=== PATIENT | female | born 1945 | race Asian ===

== ENCOUNTER 2020-03-04 19:58 | Inpatient (IN) | payer MEDICARE, SELFPAY ==
[~2020-03-04] VITALS: Ht 165.1 cm; Wt 42.6 kg
[~2020-03-04 19:58] MED LIST: ASPI-1155 PO; ATOR10TA68 PO; DOCU-144 PO; GLU500 PO; SER25 PO
[2020-03-04 20:05] VITALS: BP_SYST 111
[2020-03-04 20:59] LABS: BASOPHILS # (AUTO) 0.1 K/uL (0.0-0.2); BASOPHILS % (AUTO) 0.6 % (0.0-2.0); EOSINOPHILS # (AUTO) 0.1 K/uL (0.0-0.4); EOSINOPHILS % (AUTO) 0.9 % (0.0-4.0); HEMATOCRIT 25.1 % (36-48); LYMPHOCYTES # (AUTO) 1.2 K/uL (1.0-5.5); MEAN CORPUSCULAR HEMOGLOBIN 30 pg (27-31); MEAN CORPUSCULAR HGB CONC 32 % (32-36); MEAN CORPUSCULAR VOLUME 93 fL (79.0-98.0); MONOCYTES # (AUTO) 0.7 K/uL (0.0-1.0); MONOCYTES % (AUTO) 4.9 % (1.7-9.3); NEUTROPHILS # (AUTO) 11.6 K/uL (1.8-7.7); NEUTROPHILS % (AUTO) 84.6 % (40.0-70.0); PLATELET COUNT (AUTO) 481 K/uL (130-430); RED CELL DISTRIBUTION WIDTH 15.2 % (9.0-15.0); WHITE BLOOD COUNT (AUTO) 13.8 K/uL (4.8-10.8)
[2020-03-04 21:22] LABS: INR 1.1 (0.8-1.2); PROTHROMBIN TIME 10.9 SECS (9.5-12.5)
[2020-03-04 21:32] LABS: ANION GAP 10 (5-15); CALCIUM 8.6 mg/dL (8.4-11.0); CHLORIDE 101 mmol/L (98-107); CREATININE 0.79 mg/dL (0.55-1.30); GLUCOSE 238 mg/dL (70-99); POTASSIUM 4.6 mmol/L (3.5-5.1); SODIUM SERUM 140 mmol/L (136-145); UREA NITROGEN, BLOOD 35 mg/dL (8-21)
[2020-03-04 21:38] LABS: ALANINE AMINOTRANSFERASE 50 U/L (12-78); ALBUMIN 2.7 g/dL (3.4-4.8); ASPARTATE AMINOTRANSFERASE 21 U/L (10-37); FREE T4 (FREE THYROXINE) 1.5 ng/dl (0.8-1.5); THYROID STIMULATING HORMONE 0.45 uIu/mL (0.36-3.74); TOTAL BILIRUBIN 0.2 mg/dL (0.0-1.0)
[2020-03-04 21:40] LABS: ALCOHOL, BLOOD < 3 mg/dL (<10)
[2020-03-04 22:15] LABS: BILIRUBIN,URINE NEGATIVE (NEGATIVE); BLOOD, URINE 2+ (NEGATIVE); COLOR,URINE YELLOW (YELLOW); GLUCOSE,URINE NEGATIVE (NEGATIVE); KETONES,URINE NEGATIVE (NEGATIVE); LEUKOCYTE ESTERASE ,URINE 1+ (NEGATIVE); NITRITE, URINE NEGATIVE (NEGATIVE); PROTEIN URINE 1+ (NEGATIVE); UROBILINOGEN,URINE 0.2 (0.2-1.0)
[2020-03-04 22:20] LABS: CLARITY/URINE SLIGHTLY HAZY (CLEAR)
[2020-03-04 22:27] LABS: BACTERIA,URINE MODERATE /HPF (None Seen)
[2020-03-04] MEDS ORDERED: VANCOMYCIN HCL 1,000 MG in NS 250 ML IV ONE (22:30)
[2020-03-04] MEDS ORDERED: CEFEPIME 2 GM in D5W 100 ML IV ONE (22:30)
[2020-03-04 22:35] LABS: BARBITURATE, URINE NEGATIVE (NEG <=200); BENZODIAZEPINE, URINE NEGATIVE (NEG <=150); CANNABINOID, URINE NEGATIVE (NEG <=50); COCAINE, URINE NEGATIVE (NEG <=150); METHAMPHETAMINES SCREEN,URINE NEGATIVE (NEG <=500); OPIATE, URINE NEGATIVE (NEG <=100); PHENCYCLIDINE SCREEN,URINE NEGATIVE (NEG <=25); UR TRICYCLIC ANTIDEPRESSANTS POSITIVE (NEG <=300); URINE AMPHETAMINE NEGATIVE (NEG <=500); URINE METHADONE NEGATIVE (NEG <=200); URINE OXYCODONE SCREEN NEGATIVE (NEG <=100); URINE PROPOXYPHENE SCREEN NEGATIVE (NEG <=300)
[2020-03-04] MEDS ORDERED: NS 500 ML IV ONE (22:45)
[2020-03-04] MEDS ORDERED: NACL 0.9% 1,000 ML IV ONE (22:45)
[2020-03-04] MEDS ORDERED: VANCOMYCIN HCL 1000 MG/VIAL IV ONE (23:08)
[2020-03-04] MEDS ORDERED: CEFEPIME 1 GM/VIAL (MAXIPIME) ONE (23:12)
[2020-03-04] MEDS ORDERED: INSULIN REGULAR, HUMAN 100 UNITS/ML, 10 ML VIAL (humuLIN R) SUBCUT PRN (23:15)
[2020-03-05 01:11] VITALS: BP_SYST 113
[2020-03-05] MEDS: cefTRIAXone 1 GM IVPB PREMIX 50 ML IV SCH (03:22)
[2020-03-05] MEDS ORDERED: cefTRIAXone 1 GM IVPB PREMIX 50 ML IV ONE (03:25)
[2020-03-05] MEDS: NACL 0.9% 1,000 ML IV SCH ×3 (03:28→21:36)
[2020-03-05 06:36] LABS: BASOPHILS # (AUTO) 0.1 K/uL (0.0-0.2); BASOPHILS % (AUTO) 0.8 % (0.0-2.0); EOSINOPHILS # (AUTO) 0.2 K/uL (0.0-0.4); EOSINOPHILS % (AUTO) 2.4 % (0.0-4.0); LYMPHOCYTES # (AUTO) 2.4 K/uL (1.0-5.5); LYMPHOCYTES % (AUTO) 23.3 % (20.5-51.5); MEAN CORPUSCULAR HEMOGLOBIN 30 pg (27-31); MEAN CORPUSCULAR HGB CONC 33 % (32-36); MEAN CORPUSCULAR VOLUME 91 fL (79.0-98.0); MONOCYTES # (AUTO) 0.5 K/uL (0.0-1.0); MONOCYTES % (AUTO) 5.1 % (1.7-9.3); NEUTROPHILS % (AUTO) 68.4 % (40.0-70.0); PLATELET COUNT (AUTO) 423 K/uL (130-430); RED BLOOD CELL COUNT(AUTO) 2.09 MIL/uL (4.2-6.2); WHITE BLOOD COUNT (AUTO) 10.2 K/uL (4.8-10.8)
[2020-03-05 06:56] LABS: HEMOGLOBIN 6.3 g/dL (12.0-16.0)
[2020-03-05 07:31] LABS: ALANINE AMINOTRANSFERASE 37 U/L (12-78); ALBUMIN 2.3 g/dL (3.4-4.8); ASPARTATE AMINOTRANSFERASE 18 U/L (10-37); CALCIUM 7.5 mg/dL (8.4-11.0); CHLORIDE 105 mmol/L (98-107); CREATININE 0.49 mg/dL (0.55-1.30); GLUCOSE 142 mg/dL (70-99); POTASSIUM 3.7 mmol/L (3.5-5.1); SODIUM SERUM 137 mmol/L (136-145); TOTAL BILIRUBIN 0.2 mg/dL (0.0-1.0); UREA NITROGEN, BLOOD 34 mg/dL (8-21)
[2020-03-05 07:46] LABS: ANION GAP < 3 (5-15)
[2020-03-05 08:00] VITALS: BP_SYST 114
[2020-03-05] MEDS: metFORMIN HCL 500 MG TABLET PO SCH ×2 (08:35→18:47)
[2020-03-05] MEDS: DOCUSATE SODIUM 100 MG CAPSULE PO SCH ×2 (08:38→21:36)
[2020-03-05] MEDS: ATORVASTATIN 10 MG TABLET PO SCH (08:38)
[2020-03-05] MEDS ORDERED: ASPIRIN 81 MG TAB.CHEW PO SCH (09:00)
[2020-03-05] MEDS ORDERED: PANTOPRAZOLE SODIUM 80 MG in NS 100 ML IV ONE (09:15)
[2020-03-05 10:46] LABS: TOTAL IRON BIND. CAPACITY 191 ug/dL (250-450)
[2020-03-05 12:31] VITALS: BP_SYST 119
[2020-03-05 15:53] LABS: BASOPHILS # (AUTO) 0.1 K/uL (0.0-0.2); BASOPHILS % (AUTO) 1.2 % (0.0-2.0); EOSINOPHILS # (AUTO) 0.2 K/uL (0.0-0.4); EOSINOPHILS % (AUTO) 4.1 % (0.0-4.0); LYMPHOCYTES # (AUTO) 1.9 K/uL (1.0-5.5); LYMPHOCYTES % (AUTO) 33.8 % (20.5-51.5); MEAN CORPUSCULAR HEMOGLOBIN 29 pg (27-31); MEAN CORPUSCULAR HGB CONC 32 % (32-36); MEAN CORPUSCULAR VOLUME 91 fL (79.0-98.0); MONOCYTES # (AUTO) 0.5 K/uL (0.0-1.0); MONOCYTES % (AUTO) 8.6 % (1.7-9.3); NEUTROPHILS % (AUTO) 52.3 % (40.0-70.0); PLATELET COUNT (AUTO) 423 K/uL (130-430); RED BLOOD CELL COUNT(AUTO) 2.15 MIL/uL (4.2-6.2); RED CELL DISTRIBUTION WIDTH 15.4 % (9.0-15.0); WHITE BLOOD COUNT (AUTO) 5.7 K/uL (4.8-10.8)
[2020-03-05 16:07] LABS: HEMATOCRIT 19.5 % (36-48); HEMOGLOBIN 6.2 g/dL (12.0-16.0)
[2020-03-05 16:33] VITALS: BP_SYST 116
[2020-03-05] MEDS: PANTOPRAZOLE SODIUM 40 MG in NS 50 ML IV SCH (18:00)
[2020-03-05] MEDS: QUEtiapine FUMARATE 25 MG TABLET PO SCH (21:36)
[2020-03-05 23:58] VITALS: BP_SYST 112
[2020-03-06] MEDS: cefTRIAXone 1 GM IVPB PREMIX 50 ML IV SCH ×2 (03:30→22:36)
[2020-03-06 03:58] LABS: BASOPHILS % (AUTO) 0.6 % (0.0-2.0); EOSINOPHILS # (AUTO) 0.2 K/uL (0.0-0.4); EOSINOPHILS % (AUTO) 2.9 % (0.0-4.0); HEMATOCRIT 30.8 % (36-48); HEMOGLOBIN 10.4 g/dL (12.0-16.0); LYMPHOCYTES # (AUTO) 1.5 K/uL (1.0-5.5); LYMPHOCYTES % (AUTO) 20.2 % (20.5-51.5); MEAN CORPUSCULAR HEMOGLOBIN 31 pg (27-31); MEAN CORPUSCULAR HGB CONC 34 % (32-36); MEAN CORPUSCULAR VOLUME 90 fL (79.0-98.0); MONOCYTES # (AUTO) 0.5 K/uL (0.0-1.0); MONOCYTES % (AUTO) 6.1 % (1.7-9.3); NEUTROPHILS # (AUTO) 5.2 K/uL (1.8-7.7); NEUTROPHILS % (AUTO) 70.2 % (40.0-70.0); PLATELET COUNT (AUTO) 367 K/uL (130-430); RED BLOOD CELL COUNT(AUTO) 3.42 MIL/uL (4.2-6.2); RED CELL DISTRIBUTION WIDTH 14.8 % (9.0-15.0); WHITE BLOOD COUNT (AUTO) 7.4 K/uL (4.8-10.8)
[2020-03-06 04:11] LABS: PROTHROMBIN TIME 10.1 SECS (9.5-12.5)
[2020-03-06 08:01] VITALS: BP_SYST 127
[2020-03-06] MEDS: ATORVASTATIN 10 MG TABLET PO SCH (08:23)
[2020-03-06] MEDS: DOCUSATE SODIUM 100 MG CAPSULE PO SCH ×2 (08:23→22:33)
[2020-03-06] MEDS: metFORMIN HCL 500 MG TABLET PO SCH ×2 (08:23→18:00)
[2020-03-06 09:34] LABS: ANION GAP 4 (5-15); CALCIUM 8.2 mg/dL (8.4-11.0); CHLORIDE 109 mmol/L (98-107); CREATININE 0.57 mg/dL (0.55-1.30); GLUCOSE 115 mg/dL (70-99); POTASSIUM 4.3 mmol/L (3.5-5.1); SODIUM SERUM 146 mmol/L (136-145); UREA NITROGEN, BLOOD 18 mg/dL (8-21)
[2020-03-06] MEDS: PANTOPRAZOLE SODIUM 40 MG in NS 50 ML IV SCH (11:00)
[2020-03-06 12:07] LABS: FERRITIN 59 ng/mL (15-150)
[2020-03-06 12:25] VITALS: BP_SYST 134
[2020-03-06] MEDS: NACL 0.9% 1,000 ML IV SCH ×2 (14:30→19:41)
[2020-03-06] MEDS ORDERED: SIMETHICONE 40 MG/0.6 ML ML ONE (14:42)
[2020-03-06] MEDS: MIDAZOLAM HCL 5 MG/5 ML VIAL ONE ×2 (15:12→15:16)
[2020-03-06] MEDS: fentaNYL CITRATE/PF 100 MCG/2 ML AMP ONE ×2 (15:12→15:16)
[2020-03-06 16:20] VITALS: BP_SYST 137
[2020-03-06 19:33] VITALS: BP_SYST 139
[2020-03-06 20:00] VITALS: BP_SYST 101
[2020-03-06] MEDS: PANTOPRAZOLE SODIUM 40 MG/VIAL (PROTONIX) IVP SCH (22:33)
[2020-03-06] MEDS: QUEtiapine FUMARATE 25 MG TABLET PO SCH (22:33)
[2020-03-07 02:07] VITALS: BP_SYST 138
[2020-03-07] MEDS ORDERED: MORPHINE 2 MG/ML INJ. SYRINGE IVP PRN (02:15)
[2020-03-07] MEDS: NACL 0.9% 1,000 ML IV SCH (05:24)
[2020-03-07 08:00] VITALS: BP_SYST 119
[2020-03-07] MEDS: PANTOPRAZOLE SODIUM 40 MG/VIAL (PROTONIX) IVP SCH (08:24)
[2020-03-07] MEDS: ATORVASTATIN 10 MG TABLET PO SCH (08:25)
[2020-03-07] MEDS: DOCUSATE SODIUM 100 MG CAPSULE PO SCH (08:25)
[2020-03-07] MEDS: metFORMIN HCL 500 MG TABLET PO SCH (08:29)
[2020-03-07] MEDS ORDERED: PRO40 PO (09:00)
[2020-03-12] MEDS ORDERED: NITR-85 PO (15:23)
== END 2020-03-07 13:45 | disposition home or self-care (01) | DRG 871 ==
LOC: SED 19:58 → SMU 23:27 → STU 03-05 00:53
PROVIDERS: ADMIT General Practice; ATTEND General Practice
PROC: 30233N1 Transfusion of Nonautologous Red Blood Cells into Peripheral Vein, Percutaneous Approach (ICD-10-PCS; 2020-03-05)
PROC: 0DB68ZX Excision of Stomach, Via Natural or Artificial Opening Endoscopic, Diagnostic (ICD-10-PCS; principal; 2020-03-06 07:30)
DX: A41.9 Sepsis, unspecified organism (principal); E43 Unspecified severe protein-calorie malnutrition; I21.A1 Myocardial infarction type 2; K25.4 Chronic or unspecified gastric ulcer with hemorrhage; K26.4 Chronic or unspecified duodenal ulcer with hemorrhage; N39.0 Urinary tract infection, site not specified; R47.01 Aphasia; Z68.1 Body mass index [BMI] 19.9 or less, adult; I69.354 Hemiplegia and hemiparesis following cerebral infarction affecting left non-dominant side; D64.9 Anemia, unspecified; E11.9 Type 2 diabetes mellitus without complications; E78.5 Hyperlipidemia, unspecified; I11.9 Hypertensive heart disease without heart failure; I45.9 Conduction disorder, unspecified; K29.70 Gastritis, unspecified, without bleeding; Z79.82 Long term (current) use of aspirin; Z85.3 Personal history of malignant neoplasm of breast; Z99.3 Dependence on wheelchair; Z90.12 Acquired absence of left breast and nipple; Z79.899 Other long term (current) drug therapy; Z74.01 Bed confinement status; Z88.0 Allergy status to penicillin; Z88.8 Allergy status to other drugs, medicaments and biological substances
CPT/HCPCS: 36415; 71045; 80048; 80053; 80307; 81000-TC; 82607; 82728; 82962; 83540-TC; 83550-TC; 83605; 84439; 84443-TC; 84484; 85025; 85379; 85610-TC; 85730-TC; 86870; 86886; 86900; 86901; 86905; 86920; 87040-TC; 87081; 87086; 87186-TC; 88305; 88312; 88313; 93005; 96365; 96368; 99285; C9113; G0378; G0482; J0692; J0696; J2250; J2270; J3010; J3370; J7030; J7040; J7050; P9021